=== PATIENT | male | born 1940 | race Caucasian/White ===

== ENCOUNTER 2024-02-08 11:40 | Inpatient (IN) | payer MEDICARE, OTHER ==
[2024-02-08] MEDS ORDERED: Acetaminophen 325 MG TAB PO PRN (15:22)
[2024-02-08] MEDS ORDERED: Dextrose 50% Abboject 50 ML SYRINGE SLOW IVP PRN (15:22)
[2024-02-08] MEDS ORDERED: Glucagon 1 MG/ML KIT IM PRN (15:22)
[2024-02-08] MEDS ORDERED: Dextrose 5% in Water 1,000 ML IV PRN (15:22)
[2024-02-08 17:21] VITALS: BMI 31.4
[2024-02-08 19:28] LABS: Troponin I 0.032 ng/mL (< 0.028)
[2024-02-08] MEDS: Famotidine 20 MG TAB PO SCH (21:54)
[2024-02-08] MEDS: Apixaban 5 MG TAB PO SCH (21:54)
[2024-02-09 04:18] LABS: #Basophils 0.04 10x3/uL (0.0-0.2); %Basophils 0.5 % (0.0-1.0); %Eosinophils 1.4 % (0.0-10.0); %Lymphocytes 16.7 % (21.0-51.0); %Monocytes 13.4 % (0.0-10.0); %Neutrophils 67.7 % (42.0-75.0); Hemoglobin 9.7 g/dL (14.0-18.0); Mean Corpuscular HGB CONC 31.3 g/dL (32.0-36.0); Mean Corpuscular Hemoglobin 28.6 pg (27.0-31.0); Mean Corpuscular Volume 91.4 fL (78.0-98.0); Mean Platelet Volume 11.2 fL (7.4-10.4); Platelet Count 207 10x3/uL (130-400); RBC Distribution Width 16.7 % (11.5-14.5); Red Blood Cell (RBC) Count 3.39 mill/uL (4.70-6.10)
[2024-02-09 04:36] LABS: Anion Gap 14 mmol/L (10-20); BUN (Urea Nitrogen) 16 mg/dL (8.4-25.7); Calc. Creatinine Clearance 94 mL/min (70-130); Calcium 9.3 mg/dL (7.8-10.44); Carbon Dioxide 33 mmol/L (23-31); Chloride 98 mmol/L (98-107); Estimated GFR 87; Glucose 121 mg/dL (83-110); Magnesium 1.7 mg/dL (1.6-2.6); Potassium 3.3 mmol/L (3.5-5.1); Sodium 142 mmol/L (136-145)
[2024-02-09] MEDS: Furosemide 40 MG (4 mL) VIAL SLOW IVP SCH (06:58)
[2024-02-09] MEDS ORDERED: Senokot 8.6 MG TAB PO PRN ×2 (08:41→08:58)
[2024-02-09] MEDS ORDERED: Melatonin 3 MG TAB PO PRN (08:41)
[2024-02-09] MEDS ORDERED: Polyethylene Glycol 3350 17 GM Packet PO PRN (08:41)
[2024-02-09] MEDS ORDERED: Non-Formulary Item 1 EACH (Omeprazole [Omeprazole] 20 MG Tablet.Dr) PO SCH (09:00)
[2024-02-09] MEDS ORDERED: Non-Formulary Item 1 EACH (Desvenlafaxine [Desvenlafaxine Er] 100 MG Tab.Er.24h) PO SCH (09:00)
[2024-02-09] MEDS: Venlafaxine HCl XR 75 MG CAP PO SCH (10:54)
[2024-02-09] MEDS: Amlodipine 10 MG TAB PO SCH (10:55)
[2024-02-09] MEDS: Magnesium Oxide 400 MG TAB PO SCH (10:55)
[2024-02-09] MEDS: Potassium Chloride 20 MEQ TAB PO SCH ×2 (10:55→15:19)
[2024-02-09] MEDS: Aspirin 81 mg Enteric Coated Tablet PO SCH (10:55)
[2024-02-09] MEDS: Pantoprazole DR 40 MG TAB PO SCH (10:56)
[2024-02-09] MEDS: Insulin Regular, Human 100 UNIT/ML 10 ML VIAL SC PRN (10:56)
[2024-02-09] MEDS: Carvedilol 3.125 MG TAB PO SCH (10:56)
[2024-02-09] MEDS: Isosorbide Mononitrate 30 MG ER.TAB PO SCH (10:56)
[2024-02-09] MEDS: Magnesium 2 GM/50 ML(in water) 2 GM in Premix 1 BAG IVPB SCH (11:07)
[2024-02-09] MEDS: Ipratropium/Albuterol 3 ML NEB NEB SCH (11:56)
[2024-02-09] MEDS: Budesonide 0.5 MG/2 ML NEB NEB SCH (18:36)
[2024-02-09] MEDS ORDERED: Non-Formulary Item 1 EACH (Trazodone Hcl [Trazodone Hcl] 100 MG Tablet) PO SCH (21:00)
[2024-02-09] MEDS: traZODone HCl 50 MG TAB PO SCH (21:12)
[2024-02-10 06:27] LABS: Hematocrit 29.5 % (42.0-52.0); Hemoglobin 8.9 g/dL (14.0-18.0); Mean Corpuscular HGB CONC 30.2 g/dL (32.0-36.0); Mean Corpuscular Hemoglobin 27.6 pg (27.0-31.0); Mean Corpuscular Volume 91.6 fL (78.0-98.0); Platelet Count 179 10x3/uL (130-400); RBC Distribution Width 16.6 % (11.5-14.5); Red Blood Cell (RBC) Count 3.22 mill/uL (4.70-6.10)
[2024-02-10 06:44] LABS: Anion Gap 10 mmol/L (10-20); BUN (Urea Nitrogen) 17 mg/dL (8.4-25.7); Calc. Creatinine Clearance 84 mL/min (70-130); Calcium 9.5 mg/dL (7.8-10.44); Carbon Dioxide 38 mmol/L (23-31); Chloride 97 mmol/L (98-107); Estimated GFR 81; Glucose 97 mg/dL (83-110); Potassium 3.8 mmol/L (3.5-5.1); Sodium 141 mmol/L (136-145)
[2024-02-10] MEDS: Acetaminophen/Codeine 30-300mg Tablet PO PRN (08:56)
[2024-02-10] MEDS: Senokot S 8.6-50 MG TAB PO PRN (08:57)
[2024-02-10] MEDS ORDERED: Polyethylene Glycol 3350 17 GM Packet PO PRN (09:35)
[2024-02-10] MEDS ORDERED: Docusate 100 MG CAP PO PRN (09:35)
[2024-02-10] MEDS ORDERED: Senokot 8.6 MG TAB PO PRN (09:38)
[2024-02-10] MEDS: Docusate 100 MG CAP PO SCH (09:48)
[2024-02-10] MEDS: Polyethylene Glycol 3350 17 GM Packet PO SCH (09:54)
[2024-02-10 14:47] VITALS: BMI 31.1
[2024-02-11 07:50] LABS: Hematocrit 30.6 % (42.0-52.0); Hemoglobin 9.3 g/dL (14.0-18.0); Mean Corpuscular HGB CONC 30.4 g/dL (32.0-36.0); Mean Corpuscular Hemoglobin 28.2 pg (27.0-31.0); Mean Corpuscular Volume 92.7 fL (78.0-98.0); Mean Platelet Volume 10.7 fL (7.4-10.4); Platelet Count 201 10x3/uL (130-400); RBC Distribution Width 16.8 % (11.5-14.5)
[2024-02-11 08:02] LABS: Anion Gap 14 mmol/L (10-20); BUN (Urea Nitrogen) 17 mg/dL (8.4-25.7); Calc. Creatinine Clearance 86 mL/min (70-130); Calcium 9.4 mg/dL (7.8-10.44); Carbon Dioxide 36 mmol/L (23-31); Chloride 94 mmol/L (98-107); Estimated GFR 84; Glucose 134 mg/dL (83-110); Potassium 3.6 mmol/L (3.5-5.1); Sodium 140 mmol/L (136-145)
[2024-02-11] MEDS: Potassium Chloride 20 MEQ TAB PO SCH (12:58)
[2024-02-12 06:05] LABS: Anion Gap 12 mmol/L (10-20); BUN (Urea Nitrogen) 17 mg/dL (8.4-25.7); Calc. Creatinine Clearance 90 mL/min (70-130); Calcium 9.6 mg/dL (7.8-10.44); Carbon Dioxide 37 mmol/L (23-31); Chloride 95 mmol/L (98-107); Estimated GFR 86; Glucose 106 mg/dL (83-110); Potassium 3.8 mmol/L (3.5-5.1); Sodium 140 mmol/L (136-145)
[2024-02-12] MEDS: FLU (Fluad Triv) TS24-25 (65UP)/MF59C/PF 45 MCG/0.5 ML Syringe IM ONE (09:41)
[2024-02-12 15:45] VITALS: BP 135/63; TEMP 98.4
== END 2024-02-12 18:45 | disposition home or self-care (01) | DRG 280 ==
LOC: OBS 12:52 → 2NO 17:01 → OBSVTOIN 02-09 08:41
PROVIDERS: ADMIT Internal Medicine; ATTEND Internal Medicine
DX: I11.0 Hypertensive heart disease with heart failure (principal); I50.43 Acute on chronic combined systolic (congestive) and diastolic (congestive) heart failure; I21.A1 Myocardial infarction type 2; J96.01 Acute respiratory failure with hypoxia; J98.11 Atelectasis; L03.115 Cellulitis of right lower limb; I25.10 Atherosclerotic heart disease of native coronary artery without angina pectoris; E11.9 Type 2 diabetes mellitus without complications; E78.5 Hyperlipidemia, unspecified; G89.29 Other chronic pain; J44.9 Chronic obstructive pulmonary disease, unspecified; K80.20 Calculus of gallbladder without cholecystitis without obstruction; E87.6 Hypokalemia; F32.A Depression, unspecified; D64.9 Anemia, unspecified; F03.90 Unspecified dementia, unspecified severity, without behavioral disturbance, psychotic disturbance, mood disturbance, and anxiety; Z88.8 Allergy status to other drugs, medicaments and biological substances; Z79.899 Other long term (current) drug therapy; Z79.82 Long term (current) use of aspirin; Z79.01 Long term (current) use of anticoagulants; M48.10 Ankylosing hyperostosis [Forestier], site unspecified
CPT/HCPCS: 36415; 36416; 80048; 83735; 83880; 84145; 84443; 85025; 85027; 93306; 94640; 96374; G0378; J1815; J1940; J3475; J7620; J7626